=== PATIENT | male | born 1940 ===

== ENCOUNTER 2017-12-31 05:17 | Emergency (ER) | payer OTHER ==
[~2017-12-31] VITALS: Ht 180.3 cm; Wt 98.9 kg
[~2017-12-31 05:17] MED LIST: CEFADROXIL500 MG PO; CILOSTAZOL100 MG; LIPITOR20 MG; LISINOPRIL10 MG PO; NEURONTIN800 MG; PLAVIX75 MG
== END 2017-12-31 08:58 | disposition home or self-care (01) ==
LOC: ER 05:17
DX: M94.0 Chondrocostal junction syndrome [Tietze] (principal); R07.89 Other chest pain